=== PATIENT | female | born 1970 | race Caucasian/White ===

== ENCOUNTER 2019-11-12 15:07 | Outpatient (CLI) | payer OTHER, SELFPAY ==
--- NOTE | 2019-11-12 15:15 | XR_ITS ---
WS: [id number] LATERAL CERVICAL SPINE: 3 view. Lateral radiographs are performed in upright neutral, flexion and extension to the patient's toleranc e. HISTORY: CERVICALGIA COMPARISON: None available. Straightening and posterior reversal of the normal cervical lordosis. Posterior reversal centered at C5-6. Mild disc space narrowing at C5-6 and C6-7. With extension to millimeters retrolisthesis of C2 and C3. No fractures. XR/XR cervical spine fl/ex [id number] IMPRESSION: 1. Reversal the normal cervical lordosis centered at C5-6. 2. Minimal extension instability at C2 and C3.
== END 2019-11-12 15:08 | disposition home or self-care (01) ==
LOC: RADWPI 15:12
PROVIDERS: Family Provider Nurse Practitioner; PCP Nurse Practitioner; Visit Provider Nurse Practitioner
DX: M54.2 Cervicalgia (principal)
CPT/HCPCS: 72040

== ENCOUNTER 2023-12-03 09:51 | Emergency (ER) | payer OTHER, SELFPAY ==
[2023-12-03 10:42] VITALS: BP 132/76; PULSE 66; RESP 18; TEMP 36.4; O2SAT 100
[2023-12-03] MEDS: ondansetron 2 mg/ML SDV 2 mL 4 MG IVP (11:14)
[2023-12-03 11:24] LABS: Basophils # 0.1 10^3/uL (0.0-0.1); Basophils % 0.4 %; Eosinophils % 0.3 %; Hematocrit 44.7 % (36-47); Lymphocytes # 1.9 10^3/uL (0.8-4.8); Lymphocytes % 15.8 %; Mean Corpuscular HGB Conc 33.1 g/dL (30-55); Mean Corpuscular Hemoglobin 29.6 pg (27-33); Mean Corpuscular Volume 89.4 fl (85-98); Mean Platelet Volume 8.7 fL (7.4-10.4); Monocytes # 0.6 10^3/uL (0.2-0.9); Monocytes % 4.8 %; Neutrophils # 9.18 10^3/uL (1.8-7.7); Neutrophils % 78.3 %; Nucleated Red Blood Cells % 0 %; Platelet Count 317 10^3/cmm (157-399); Red Cell Distribution Width 12.8 % (12.1-15.1); White Blood Count 11.72 10^3/uL (3.29-11.43)
--- NOTE | 2023-12-03 11:48 | W.ED.NAVMDI ---
HPI - Nausea/Vomiting/Diarrhea General: Chief complaint: Nausea/Vomiting/Diarrhea Stated complaint: abd pain Time Seen by Provider: 12/03/23 10:49 History of Present Illness: 53-year-old female presents emerged part with complaints of severe nausea and vomiting that is unrelenting that started this morning. She states yesterday she started having some diarrhea intermittent abdominal cramping that she states is a 6 out of 10. She states that her pain is in the right upper quadrant and in the Epigastric region. She states that nothing seems to make her pain better and she is unsure what makes it worse. She states that no one else around her has symptoms. She states she is able to eat small amounts. Associated nausea: Yes Associated symtoms: Reports nausea Review of Systems General: Reports: 10 or more systems reviewed and unremarkable except in HPI and below GI: Reports: abdominal pain, nausea, vomiting and diarrhea Physical Exam Narrative: EXAM NARRATIVE: General: Alert, no acute distress. Skin: Warm, dry, Intact. Head: Normocephalic, atraumatic. Neck: Supple, trachea midline. Eye: Extraocular movements are intact. PERRLA Ears, nose, mouth and throat: mucosa moist. Cardiovascular: Regular, Normal peripheral perfusion. Respiratory: Lungs are clear to auscultation, respirations are non-labored, breath sounds are equal, Symmetrical chest wall expansion. Gastrointestinal: Soft, right upper quadrant tender to palpation., Non distended, Normal bowel sounds. Musculoskeletal: Normal ROM, no deformity. Neurological: Alert and oriented, No focal neurological deficit observed. Psychiatric: Cooperative, appropriate mood & affect. Course Vital Signs: Vital signs: Vital Signs Temperature 97.5 F L 12/03/23 14:49 Pulse Rate 64 12/03/23 14:49 Respiratory Rate 16 12/03/23 14:49 Blood Pressure 142/78 12/03/23 14:49 Pulse Oximetry 95 12/03/23 14:49 Oxygen Delivery Me thod Room Air 12/03/23 13:52 MDM - Nausea/Vomiting/Diarrhea Medical Decision Making Physical exam completed and documented, I will obtain laboratory evaluation to include a CBC, CMP, lipase, urinalysis, and a CT scan of the patient's abdomen pelvis to evaluate for possible differential diagnosis of bowel obstruction, incarcerated hernia, abdominal wall strain, abdominal wall hematoma, constipation, colitis, duodenitis, Medical Records I reviewed the patient's medical records. Lab Data I reviewed the patient's lab results. 12/03/23 11:08 12/03/23 11:08 Radiology Impressions Abdomen/Pelvis CT 12/03/23 12:49 IMPRESSION: 1. Mild thickening of the distal stomach with mild graying adjacent to the inferior distal stomach and proximal duodenum. Consideration for gastroduodenitis. 2. Relative thickening of the colon without pericolonic inflammatory change suspected to be on the basis of decompression. 3. 3 mm hyperdense focus at the anterior gallbladder wall may represent polyp versus adherent stone. 4. Additional chronic and incidental findings as above. Laboratory Results WBC 11.72 10^3/uL (3.29-11.43) H 12/03/23 11:08 RBC 5.00 10^6/uL (3.85-5.65) 12/03/23 11:08 Hgb 14.80 g/dL (11.27-16.99) 12/03/23 11:08 Hct 44.7 % (36-47) 12/03/23 11:08 MCV 89.4 fl (85-98) 12/03/23 11:08 MCH 29.6 pg (27-33) 12/03/23 11:08 MCHC 33.1 g/dL (30-55) 12/03/23 11:08 RDW 12.8 % (12.1-15.1) 12/03/23 11:08 Plt Count 317 10^3/cmm (157-399) 12/03/23 11:08 MPV 8.7 fL (7.4-10.4) 12/03/23 11:08 Neut % (Auto) 78.3 % 12/03/23 11:08 Lymph % (Auto) 15.8 % 12/03/23 11:08 [place] % (Auto) 4.8 % 12/03/23 11:08 Eos % (Auto) 0.3 % 12/03/23 11:08 Baso % (Auto) 0.4 % 12/03/23 11:08 Neut # (Auto) 9.18 10^3/uL (1.8-7.7) H 12/03/23 11:08 Lymph # (Auto) 1.9 10^3/uL (0.8-4.8) 12/03/23 11:08 [place] # (Auto) 0.6 10^3/uL (0.2-0.9) 12/03/23 11:08 Eos # (Auto) 0.0 10^3/uL (0.0-0.8) 12/03/23 11:08 Baso # (Auto) 0.1 10^3/uL (0.0-0.1) 12/03/23 11:08 Nucleated RBC % (auto) 0 % 12/03/23 11:08 Nucleated RBCs # 0.0 /100WBC 12/03/23 11:08 Sodium 142 mmol/L (136-145) 12/03/23 11:08 Potassium 3.5 mmol/L (3.5-5.1) 12/03/23 11:08 Chloride 102 mmol/L (98-107) 12/03/23 11:08 Carbon Dioxide 24 mmol/L (22-29) 12/03/23 11:08 Anion Gap 19.5 (5-19) H 12/03/23 11:08 BUN 12 mg/dL (6-20) 12/03/23 11:08 Creatinine 0.8 mg/dL (0.5-0.9) 12/03/23 11:08 GFR Calculation 75.6 mL/min (90-130) L 12/03/23 11:08 Glucose 156 mg/dL (65-115) H 12/03/23 11:08 Calculated Osmolality 297 mOsm/kg (285-295) H 12/03/23 11:08 Lactic Acid 2.0 mmol/L (0.5-2.2) 12/03/23 11:08 Calcium 10.1 mg/dL (8.5-10.5) 12/03/23 11:08 Total Bilirubin 0.4 mg/dL (0.15-1.2) 12/03/23 11:08 AST 15 U/L (0-32) 12/03/23 11:08 ALT 16 U/L (0-33) 12/03/23 11:08 Alkaline Phosphatase 98 U/L (35-105) 12/03/23 11:08 Total Protein 8.1 g/dL (6.6-8.7) 12/03/23 11:08 Albumin 4.2 g/dL (3.5-5.2) 12/03/23 11:08 Globulin 3.9 g/dL (1.3-4.6) 12/03/23 11:08 Lipase 39 U/L (13-60) 12/03/23 11:08 HCG, Qual Negative (Negative) 12/03/23 12:16 Urine Color Yellow (Yellow) 12/03/23 12:16 Urine Appearance Clear (CLEAR) 12/03/23 12:16 Urine pH 9 (5-7) H 12/03/23 12:16 Ur Specific [place] 1.015 (1.005-1.030) 12/03/23 12:16 Urine Protein Neg (Negative) 12/03/23 12:16 Urine Glucose (UA) Norm (Normal) 12/03/23 12:16 Urine Ketones 2+ (Negative) H 12/03/23 12:16 Urine Blood Neg (Negative) 12/03/23 12:16 Urine Nitrate Negative (Negative) 12/03/23 12:16 Urine Bilirubin Neg (Negative) 12/03/23 12:16 Prot Sulfosalicylic Acd Negative (Negative) 12/03/23 12:16 Urine Urobilinogen Norm mg/dL (Negative) 12/03/23 12:16 Ur Leukocyte Esterase Trace (Negative) H 12/03/23 12:16 Urine RBC None /hpf (0-2) 12/03/23 12:16 Urine WBC Rare /hpf (0-5) 12/03/23 12:16 Ur Squamous Epith Cells 0-4 /hpf (0-5) H 12/03/23 12:16 Amorphous Sediment Not Reportable 12/03/23 12:16 Urine Bacteria 1+ /hpf (NONE) H 12/03/23 12:16 Urine Mucus 1+ /hpf 12/03/23 12:16 Urine Opiates Screen Negative ng/mL (Negative) 12/03/23 12:16 Ur Barbiturates Screen Positive ng/mL (Negative) H 12/03/23 12:16 Ur Phencyclidine Scrn Negative ng/mL (Negative) 12/03/23 12:16 Ur Amphetamines Screen Negative ng/mL (Negative) 12/03/23 12:16 U Benzodiazepines Scrn Negative ng/mL (Negative) 12/03/23 12:16 Urine Cocaine Screen Negative ng/mL (Negative) 12/03/23 12:16 U Marijuana (THC) Screen Positive ng/mL (Negative) H 12/03/23 12:16 All radiology interpretation(s) finalized by discharge Discharge Plan Discharge Patient Disposition: Home Clinical Impression: Duodenitis, Gastroenteritis, Nausea & vomiting Condition: Stable Prescriptions: New levofloxacin 750 mg tablet 750 mg PO DAILY 7 Days Qty: 7 0RF ondansetron HCl 4 mg tablet 4 mg PO Q6H PRN (Reason: nausea and vomiting) Qty: 14 0RF metronidazole 500 mg tablet 500 mg PO BID 7 Days Qty: 14 0RF Carafate 1 gram tablet 1 g PO TID 28 Days Qty: 84 0RF Discharge Orders: Discharge ED (Routine); Ordered 12/03/23 Ordered By: Vivek Carmen Referrals: Marquise Harper MD [Physician] - Dayana Lopez APN [Primary Care Provider] - Discharge Diet: Advance as tolerated Discharge Activity: Resume usual activity Patient Instructions: Opioid Safety, Pain Management Activity Restrictions/Additional Instructions: Activity Restrictions/Additional Instructions: Thank you for choosing [facility] for your healthcare needs today. Please realize that you were seen in the Emergency Department and that we are providing you with an emergency medical screening exam and this may not be a complete and all inclusive of all the testing and or medical work-up that you may need to determine your ailment or severity of your illness. It is very important that you follow-up as instructed with your Primary care provider or Specialist for additional evaluation and to discuss your medical treatment plan. You may return to the Emergency Department should you have concerns or if your condition changes or worsens in any way. Coding Level of Care Code ED Bleacher Operator for Marek Hinojosa
[2023-12-03 11:49] LABS: Alanine Aminotransferase 16 U/L (0-33); Albumin Level 4.2 g/dL (3.5-5.2); Alkaline Phosphatase 98 U/L (35-105); Anion Gap 19.5 (5-19); Aspartate Amino Transferase 15 U/L (0-32); Blood Urea Nitrogen 12 mg/dL (6-20); Calcium 10.1 mg/dL (8.5-10.5); Carbon Dioxide 24 mmol/L (22-29); Chloride 102 mmol/L (98-107); Globulin 3.9 g/dL (1.3-4.6); Glomerular Filtration Rate 75.6 mL/min (90-130); Glucose 156 mg/dL (65-115); Lipase 39 U/L (13-60); Osmolality Calculated 297 mOsm/kg (285-295); Potassium 3.5 mmol/L (3.5-5.1); Sodium 142 mmol/L (136-145); Total Bilirubin 0.4 mg/dL (0.15-1.2); Total Protein 8.1 g/dL (6.6-8.7)
[2023-12-03 12:23] LABS: HCG Qualitative Urine. Negative (Negative)
--- NOTE | 2023-12-03 12:49 | CTR_ITS ---
PROCEDURE INFORMATION: Exam: CT Abdomen And Pelvis With Contrast Exam date and time: 12/03/2023 1:15 PM Age: 53 years old Clinical indication: Abdominal pain; Generalized; Additional info: Abd pain TECHNIQUE: Imaging protocol: Computed tomography of the abdomen and pelvis with contrast. Radiation optimization: All CT scans at this facility use at least one of these dose optimization techniques: automated exposure control; mA and/or kV adjustment per patient size (includes targeted exams where dose is matched to clinical indication); or iterative reconstruction. 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 Subcentimeter hypodensity too small to characterize. Gallbladder and bile ducts: 3 mm hyperdense focus at the anterior gallbladder wall on axial image 31 of series 4. Pancreas: Normal. No ductal dilation. Spleen: Normal. No splenomegaly. Adrenal glands: Normal. No mass. Kidneys and ureters: Bilateral renal subcentimeter hypodensities too small to characterize are statistically likely benign and require no dedicated imaging follow-up. Otherwise unremarkable. Stomach and bowel: No bowel dilatation to suggest obstruction. Relative thickening of the distal stomach in the setting of underdistention with mild graying adjacent to the inferior distal stomach and proximal duodenum. Mild relative diffuse colonic thickening without pericolonic inflammatory change in the setting of decompression. Appendix: No evidence of appendicitis. Intraperitoneal space: No free air. No significant fluid collection. Vasculature: Mild systemic atherosclerosis without abdominal aortic aneurysm. Lymph nodes: Unremarkable. No enlarged lymph nodes. Urinary bladder: Unremarkable as visualized. Reproductive: Unremarkable as visualized. Bones/joints: Unremarkable. No acute fracture. Soft tissues: Unremarkable. CT/CT abdomen pelvis w con* [id number] IMPRESSION: 1. Mild thickening of the distal stomach with mild graying adjacent to the inferior distal stomach and proximal duodenum. Consideration for gastroduodenitis. 2. Relative thickening of the colon without pericolonic inflammatory change suspected to be on the basis of decompression. 3. 3 mm hyperdense focus at the anterior gallbladder wall may represent polyp versus adherent stone. 4. Additional chronic and incidental findings as above.
[2023-12-03 13:07] LABS: Amphetamines Screen Urine Negative (Negative); Barbiturates Screen Urine Positive (Negative); Benzodiazepines Screen Urine Negative (Negative); Cocaine Screen Urine Negative (Negative); Opiate Screen Urine Negative (Negative); PCP Screen Urine Negative (Negative); THC Screen Urine Positive (Negative)
[2023-12-03] MEDS: iohexol 350 mg/mL 500 mL Btl (per mL) IV (13:17)
[2023-12-03 13:28] LABS: Glucose Urine UA Norm (Normal); Protein Urine Neg (Negative); Specific Gravity, Urine 1.015 (1.005-1.030); Urine Appearance Clear (CLEAR); Urine Color Yellow (Yellow); pH Urine 9 (5-7)
[2023-12-03 13:29] LABS: Add Urine Culture? No; Add Urine Microscopic? YES; Bacteria Urine 1+ /hpf; Bilirubin Urine Neg (Negative); Blood Urine Neg (Negative); Ketones Urine 2+ (Negative); Leukocyte Esterase Urine Trace (Negative); Mucus Urine 1+ /hpf; Nitrate Urine Negative (Negative); Squamous Epithelial Cell Urine 0-4 /hpf (0-5); Sulfosalicylic Acid Urine Negative (Negative); Urobilinogen Urine Norm (Negative); WBC Urine RARE /hpf (0-5)
[2023-12-03 13:52] VITALS: BP 128/50; PULSE 56; RESP 14; O2SAT 94
[2023-12-03] MEDS: sodium chloride 0.9% 1,000 ML 999 ML IV (13:53)
[2023-12-03] MEDS: haloperidol inj 5 mg/mL INJ 1 mL IVP (14:47)
[2023-12-03 14:49] VITALS: BP 142/78; PULSE 64; RESP 16; TEMP 36.4; O2SAT 95
== END 2023-12-03 15:08 | disposition home or self-care (01) ==
PROVIDERS: Emergency Provider Internal Medicine; PCP Nurse Practitioner
DX: K52.9 Noninfective gastroenteritis and colitis, unspecified (principal); K29.80 Duodenitis without bleeding; R11.2 Nausea with vomiting, unspecified
CPT/HCPCS: 74177; 80053; 80306; 81001; 81025; 83605; 83690; 85025; 96361; 96374; 96375; 99285; J1630; J2405; J7030; Q9967